=== PATIENT | female | born 1970 | race Asian ===

== ENCOUNTER 2022-02-10 08:04 | Outpatient (CLI) | payer BC | END 2022-02-10 08:05 | disposition home or self-care (01) | LOC: CSHMAMMO 08:04 | PROVIDERS: ATTEND Obstetrics & Gynecology | DX: Z12.31 Encounter for screening mammogram for malignant neoplasm of breast (principal) | CPT/HCPCS: 77063; 77067 ==

== ENCOUNTER 2023-02-16 11:31 | Outpatient (CLI) | payer BC | END 2023-02-16 11:32 | disposition home or self-care (01) | LOC: CSHMAMMO 11:31 | PROVIDERS: ATTEND Obstetrics & Gynecology | DX: Z12.31 Encounter for screening mammogram for malignant neoplasm of breast (principal) | CPT/HCPCS: 77063; 77067 ==